=== PATIENT | male | born 1960 ===

== ENCOUNTER 2021-11-03 05:07 | Day surgery (SDC) | payer OTHER ==
[~2021-11-03 05:07] MED LIST: ZESTRIL5 MG PO
== END 2021-11-03 18:53 | disposition home or self-care (01) ==
LOC: CIR.AMB 05:07
PROVIDERS: ATTEND Colon & Rectal Surgery
DX: K64.8 Other hemorrhoids (principal); K92.2 Gastrointestinal hemorrhage, unspecified; K60.5 Anorectal fistula; I10 Essential (primary) hypertension; Z87.891 Personal history of nicotine dependence; F41.9 Anxiety disorder, unspecified; Z20.822 Contact with and (suspected) exposure to COVID-19